=== PATIENT | female | born 1980 | race Caucasian/White ===

== ENCOUNTER 2017-04-24 11:57 | Emergency (ER) | payer OTHER ==
[~2017-04-24] VITALS: Ht 157.5 cm; Wt 48.1 kg
== END 2017-04-24 17:18 | disposition home or self-care (01) ==
LOC: ER 11:57
DX: O20.0 Threatened abortion (principal); Z34.01 Encounter for supervision of normal first pregnancy, first trimester

== ENCOUNTER → 2017-05-24 | Emergency (ER) | payer OTHER ==
[~2017-05-24] VITALS: Ht 157.5 cm; Wt 49.0 kg
[~2017-05-24] MED LIST: PRENATABS FA T1 EACH PO
== END | disposition home or self-care (01) ==
LOC: ER 20:42
DX: O20.0 Threatened abortion (principal); Z34.01 Encounter for supervision of normal first pregnancy, first trimester

== ENCOUNTER → 2017-10-23 | Emergency (ER) | payer OTHER ==
[~2017-10-23] VITALS: Ht 157.5 cm; Wt 59.0 kg
== END | disposition home or self-care (01) ==
LOC: ER 19:19
DX: O26.893 Other specified pregnancy related conditions, third trimester (principal); S90.571A Other superficial bite of ankle, right ankle, initial encounter; W54.0XXA Bitten by dog, initial encounter; Y93.89 Activity, other specified; Y92.098 Other place in other non-institutional residence as the place of occurrence of the external cause; Y99.8 Other external cause status; Z34.03 Encounter for supervision of normal first pregnancy, third trimester

== ENCOUNTER 2017-11-05 15:00 | Inpatient (IN) | payer OTHER ==
[~2017-11-05] VITALS: Ht 157.5 cm; Wt 3.6 kg
== END 2017-12-04 13:36 | disposition home or self-care (01) | DRG 766 ==
LOC: LDR 12-01 06:44 → OB/GYN 12-01 06:44
PROVIDERS: Obstetrics & Gynecology
PROC: 4A1HXCZ Monitoring of Products of Conception, Cardiac Rate, External Approach (ICD-10-PCS; 2017-12-01)
PROC: 4A033R1 Measurement of Arterial Saturation, Peripheral, Percutaneous Approach (ICD-10-PCS; 2017-12-01)
PROC: 10D00Z1 Extraction of Products of Conception, Low, Open Approach (ICD-10-PCS; principal; 2017-12-01 17:00)
DX: O33.8 Maternal care for disproportion of other origin (principal); Z3A.39 39 weeks gestation of pregnancy; Z37.0 Single live birth

== ENCOUNTER 2017-11-20 06:41 | Outpatient (CLI) | payer OTHER | END 2017-11-20 11:00 | disposition home or self-care (01) | LOC: OBS/DEL 06:41 | DX: O47.1 False labor at or after 37 completed weeks of gestation (principal); Z34.83 Encounter for supervision of other normal pregnancy, third trimester ==

== ENCOUNTER → 2017-11-20 | Outpatient (CLI) | payer OTHER | END | disposition still patient (30) | LOC: OBS/DEL 10:42 | DX: O47.1 False labor at or after 37 completed weeks of gestation (principal) ==

== ENCOUNTER → 2017-11-26 | Outpatient (CLI) | payer OTHER | END | disposition home or self-care (01) | LOC: NST 17:04 | DX: Z34.83 Encounter for supervision of other normal pregnancy, third trimester (principal) ==

== ENCOUNTER → 2021-06-28 | Emergency (ER) | payer OTHER ==
[~2021-06-28] VITALS: Ht 157.5 cm; Wt 45.4 kg
== END | disposition left against medical advice (07) ==
LOC: ER 08:32
DX: Z53.21 Procedure and treatment not carried out due to patient leaving prior to being seen by health care provider (principal)

== ENCOUNTER 2023-09-04 12:31 | Emergency (ER) | payer OTHER ==
[~2023-09-04] VITALS: Ht 157.5 cm; Wt 47.6 kg
[2023-09-04] MEDS ORDERED: KETOROLAC TROMETHAMINE 30 MG VIAL IM STA (12:58)
[2023-09-04] MEDS ORDERED: CETIRIZINE HCL 5 MG/5 ML ML PO STA (12:58)
[2023-09-04] MEDS ORDERED: GUAIFENESIN/DEXTROMETHORPHAN 10ML BLIST.PACK PO STA (13:01)
[2023-09-04] MEDS ORDERED: KETOROLAC TROMETHAMINE 30 MG VIAL ONE (13:03)
[2023-09-04] MEDS ORDERED: CETIRIZINE HCL 5MG/5ML BLIST.PACK PO ONE (13:03)
[2023-09-04] MEDS ORDERED: GUAIFENESIN/DEXTROMETHORPHAN 10ML BLIST.PACK PO ONE (13:04)
[2023-09-04 13:20] LABS: HEMATOCRIT 36.7 % (36.0-45.00); HEMOGLOBIN 12.7 g/dL (12.0-15.00); MEAN CELL VOLUME 90.1 fL (80.00-100.00); MEAN CORPUSCULAR HEMOGLOBIN 31.3 pg (27.00-32.0); MEAN CORPUSCULAR HGB CONC 34.7 g/dl (32.0-36.0); PLATELET COUNT 191 K/uL (150-450); RED BLOOD COUNT 4.07 M/uL (4.00-6.00); RED CELL DISTRIBUTION WIDTH 13.3 % (11.5-14.5)
[2023-09-04] MEDS ORDERED: MUCINEX DM ER1 EACH PO (13:51)
[2023-09-04] MEDS ORDERED: SINGULAIR10 MG PO (13:51)
[2023-09-04] MEDS ORDERED: ZYRTEC10 MG PO (13:51)
[2023-09-04] MEDS ORDERED: BENZONATATE200 M1 PO (13:51)
== END 2023-09-04 14:01 | disposition home or self-care (01) ==
LOC: ER 12:32
PROVIDERS: General Practice
DX: U07.1 COVID-19 (principal); R53.81 Other malaise; Z88.2 Allergy status to sulfonamides; Z88.8 Allergy status to other drugs, medicaments and biological substances